=== PATIENT | female | born 1950 | race Caucasian/White ===

== ENCOUNTER 2022-07-02 07:13 | Emergency (ER) | payer OTHER, MEDICARE, SELFPAY ==
--- NOTE | ~2022-07-02 | XR_ITS ---
Right Hand Technique: PA, oblique, and lateral views were obtained. Clinical History: Pain Findings: No acute fracture or dislocation is seen. Osseous alignment is anatomic. There are mild to moderate degenerative changes throughout the interphalangeal joints of the hand, and at the first CMC joint.. Soft tissues are unremarkable. Impression: No fracture or dislocation seen. Degenerative changes throughout the hand, as detailed above. Reviewed, dictated and finalized at location . Impression: No fracture or dislocation seen. Degenerative changes throughout the hand, as detailed above.
[2022-07-02 07:20] VITALS: BP 197/79; PULSE 71; RESP 16; TEMP 36.4; O2SAT 100
--- NOTE | 2022-07-02 07:28 | ED.UPPEXIN ---
HPI - Extremity Injury (Upper) General Chief Complaint: Extremity Injury, Upper Stated Complaint: R hand pain Time Seen by Provider: 07/02/22 07:25 History of Present Illness HPI narrative: Pt presents today with right hand pain and swelling. Pt says her dog pulled her when trying to serenity something on leash and she fell and landed on right hand on concrete last night. Pt says she didn't think much of it last night but it is more swollen today and she thought she should get it checked out. Related Data Home Medications Medication Instructions Recorded Confirmed calcium carbonate 600 mg-vitamin 2 cap PO .qd 03/31/19 05/15/22 D3 12.5 mcg (500 unit) capsule (Calcium 600 with Vitamin D3) multivitamin with minerals-folic mg PO 03/31/19 05/15/22 acid 0.4 mg tablet (One Daily Womens 50 Plus) Allergies Allergy/AdvReac Type Severity Reaction Status Date / Time No Known Allergies Allergy Verified 07/02/22 07:27 Review of Systems Review of Systems: All systems reviewed & are unremarkable except as noted in HPI and below PMFSH Past Medical History Medical History Essential hypertension History of vaginal delivery Hyperlipidemia Hypothyroidism determined by thyroid function test Surgical History Surgical History History of cholecystectomy Family History Family History Mother Family history of lung cancer Father Family history of throat cancer Social History Social History Smoking status: Never smoker Second hand tobacco smoke exposure: No Alcohol intake: current Alcohol use details: 1 Drink per year. Substance use: never Substance use type: does not use Living arrangements: with family Occupation/Education: occupation Gender identity (if verbalized by the patient): Female Exam Const: General: healthy appearing Nutritional Appearance: well nourished Orientation/consciousness: patient oriented x3 Limitations: no limitations Skin: Wounds: wounds noted (superficial laceration to palm near fifth mcp joint ) Neuro: General: patient oriented x3, moves all extremities and no focal motor deficits Speech: normal speech Extrem: General: no clubbing, cyanosis or edema Other: mild swelling and tenderness right hand with small superficial laceration to palm at 5th mcp joint with some mild surrounding erythema Psych: Mental Status: mental status grossly normal Affect: normal affect Attitude: cooperative Course Vital Signs Vital signs: Vital Signs Temperature 97.6 F 07/02/22 07:20 Pulse Rate 71 07/02/22 07:20 Respiratory Rate 16 07/02/22 07:20 Blood Pressure 197/79 H 07/02/22 07:20 Pulse Oximetry 100 07/02/22 07:20 Temperature 97.6 F 07/02/22 07:20 Pulse Rate 71 07/02/22 07:20 Respiratory Rate 16 07/02/22 07:20 Blood Pressure 197/79 H 07/02/22 07:20 Pulse Oximetry 100 07/02/22 07:20 MDM - Extremity Injury (Upper) MDM Narrative Medical decision making narrative: no fx noted on x ray. will treat with antibioitics and ice elvate and otc nsaids Differential Diagnosis Differential diagnosis: Likely sprain and strain of wrist, fracture of hand and other (cellulitis of hand) Discharge Plan Discharge Clinical Impression: Contusion of hand, right, Cellulitis Patient Disposition: Home, Self-Care Condition: Stable Instructions: Antibiotic Form, Cellulitis (ED), Contusion in Adults (ED) Prescriptions: New amoxicillin-pot clavulanate 875-125 mg tablet 1 tablet PO Q12H Qty: 20 0RF No Action One Daily Womens 50 Plus 0.4 mg tablet PO calcium carbonate-vitamin D3 [Calcium 600 with Vitamin D3] 600 mg(1,500mg) -500 unit capsule 2 cap PO .qd levothyroxine 125 mcg tablet
[2022-07-02] MEDS: TETANUS,DIPHTHERIA,AC PERTUSSIS ADULT (0.5 ML) BOOSTRIX IM (07:40)
== END 2022-07-02 08:10 | disposition home or self-care (01) ==
PROVIDERS: Emergency Provider Emergency Medicine; PCP Physician Assistant
DX: S60.221A Contusion of right hand, initial encounter (principal); L03.113 Cellulitis of right upper limb; E78.5 Hyperlipidemia, unspecified; E03.9 Hypothyroidism, unspecified; I10 Essential (primary) hypertension; Z23 Encounter for immunization; W18.39XA Other fall on same level, initial encounter
CPT/HCPCS: 73130; 90715; 99283

== ENCOUNTER 2023-11-21 19:55 | Emergency (ER) | payer MEDICARE, SELFPAY ==
--- NOTE | ~2023-11-21 | XR_ITS ---
EXAM: XR hand RT min 3V DATE: 11/21/2023 20:30 HISTORY: dog bite, PUNCTURE WOUNDS TO 4TH AND 2ND METACARPAL . COMPARISON: 07/02/2022. FINDINGS: Decreased mineralization. Comminuted fracture of the proximal aspect of the third proximal phalange, with 20 degrees posterior angulation. No definite intra-articular extension. No lytic or bl astic lesion. Moderate scattered polyarticular osteoarthritis. No erosion or periosteal change. Subcu taneous gas in the thenar soft tissues and between the second/third and third/fourth digits at the le elizabeth of the proximal phalanges. IMPRESSION: Comminuted, angulated fracture of the proximal aspect of the third proximal phalange. Reviewed, dictated and finalized at location K.
[2023-11-21 19:56] VITALS: BP 149/93; PULSE 69; RESP 16; TEMP 36.3; O2SAT 97
[2023-11-21] MEDS: MORPHINE SULFATE (*CRX) 4 MG/ML INJ IV PUSH (20:46)
[2023-11-21] MEDS: AMPICILLIN SULB 3 GM/NS 100 ML 3 GM/100 ML VIAL IVPB (20:47)
[2023-11-21] MEDS: TETANUS,DIPHTHERIA,AC PERTUSSIS ADULT (0.5 ML) BOOSTRIX IM (20:47)
[2023-11-21] MEDS: NACL 0.9% IRRIGATION POUR BOTTLE 500 ML IRRIGATION (20:55)
[2023-11-21] MEDS: ONDANSETRON INJ 4 MG/2 ML VIAL IV PUSH (20:57)
--- NOTE | 2023-11-21 20:59 | ED.GENADULT ---
HPI - General Adult General Chief complaint: Animal Bite Stated complaint: Dog bite Time Seen by Provider: 11/21/23 20:08 History of Present Illness HPI narrative: Patient 73-year-old female who presents emergency department with chief complaint of dog bite to the right hand. Patient reports that she was playing tug-of-war with her dog and the dog grabbed a hold for hand and bit several times on her hand the patient reports she has defect between the 1st and 2nd digit and between the 3rd and 4th digit patient reports several large defects also reports multiple puncture wounds on the palmar aspect of her hand patient reports she is unsure of her last tetanus shot reports the dog is her pet and is observable. Patient reports he is not allergic to anything Related Data Home Medications Medication Instructions Recorded Confirmed calcium 600 mg (as 2 cap PO .qd 03/31/19 05/29/23 carbonate)-vitamin D3 12.5 mcg (500 unit) capsule (Calcium with Vit D3) multivitamin with minerals-folic mg PO 03/31/19 05/29/23 acid 0.4 mg tablet (One Daily Womens 50 Plus) Allergies Allergy/AdvReac Type Severity Reaction Status Date / Time No Known Allergies Allergy Verified 11/07/22 09:41 Review of Systems Review of Systems: A 10 system review of systems was completed on the patient and is negative except for what is stated in the HPI. Nursing and ancillary documentation was reviewed. [facility] Past Medical History Medical History Essential hypertension Hyperlipidemia Hypothyroidism determined by thyroid function test Surgical History Surgical History History of cholecystectomy Family History Family History Mother Family history of lung cancer Father Family history of throat cancer Social History Social History Smoking status: Never smoker Second hand tobacco smoke exposure: No Alcohol intake: current Alcohol use details: 1 Drink per year. Substance use: never Substance use type: does not use Lack of Transportation: No Lack of Food: Never True Current Housing: I Have Housing Concerned About Future Housing: No Difficulty Paying Gas/Electric Bills: No Difficulty Paying for Meds: No Currently Unemployed: No Education: High School Diploma/GED Living arrangements: with family Occupation/Education: occupation Gender identity (if verbalized by the patient): Female Exam Narrative: GENERAL: Well-appearing, well-nourished, and in no acute distress. HEAD: Normocephalic, atraumatic. EYES: PERRLA and EOMI. ENT: Nares clear, no rhinorrhea or epistaxis. Mucous membranes moist. NECK: Supple. CHEST: Clear to auscultation. No respiratory distress. HEART: Regular rate and rhythm. No murmur heard. Normal peripheral pulses. ABDOMEN: Soft, nontender, nondistended, normal active bowel sounds. EXTREMITIES: Normal range of motion intact sensory to the hand there are several large defects to the dorsum of the right hand with a approximately 5 cm laceration between the 1st and 2nd digit and a proximally 4 cm laceration between the 3rd and 4th digit there are multiple puncture wounds present on the palmar aspect of the right hand. No edema. SKIN: Warm, dry, no rash. NEURO: No focal deficits. Alert and oriented x3. PSYCH: Normal mood and affect. Course Vital Signs Vital signs: Vital Signs Temperature 36.3 C L 11/21/23 19:56 Pulse Rate 69 11/21/23 19:56 Respiratory Rate 16 11/21/23 19:56 Blood Pressure 149/93 H 11/21/23 19:56 Pulse Oximetry 97 11/21/23 19:56 Oxygen Delivery Room Air 11/21/23 19:56 Temperature 36.3 C L 11/21/23 19:56 Pulse Rate 69 11/21/23 19:56 Respiratory Rate 16 11/21/23 19:56 Blood Pressu
[2023-11-21 22:01] VITALS: BP 143/68; O2SAT 98
[2023-11-21 22:46] VITALS: BP 142/113; PULSE 61; RESP 17; O2SAT 97
--- NOTE | 2023-11-21 23:13 | PC.NURSE ---
called report to MARKELL Pedraza at [facility] ER. all questions answered.
--- NOTE | 2023-11-21 23:16 | PC.NURSE ---
Report received from MARKELL Rowan. Assumed care of patient at this time. Patient awaiting EMS to transport patient to [facility] ER.
--- NOTE | 2023-11-21 23:21 | PC.NURSE ---
care and report given to MARKELL Vázquez. all questions answered.
[2023-11-21 23:34] VITALS: BP 137/75; PULSE 61; RESP 17; O2SAT 97
--- NOTE | 2023-11-22 00:14 | PC.NURSE ---
Pt called out to state her pain is going back up. ERP notified, new orders received.
[2023-11-22] MEDS: MORPHINE SULFATE (*CRX) 4 MG/ML INJ IV PUSH (00:18)
[2023-11-22 00:32] VITALS: BP 107/79; PULSE 61; RESP 16; O2SAT 97
--- NOTE | 2023-11-22 00:43 | PC.NURSE ---
EMS here to transfer patient to [facility] ER.
== END 2023-11-22 00:44 | disposition short-term general hospital (02) ==
PROVIDERS: Emergency Provider Emergency Medicine; PCP Family Medicine
DX: S62.612A Displaced fracture of proximal phalanx of right middle finger, initial encounter for closed fracture (principal); S61.451A Open bite of right hand, initial encounter; W54.0XXA Bitten by dog, initial encounter; I10 Essential (primary) hypertension; E78.5 Hyperlipidemia, unspecified; E03.9 Hypothyroidism, unspecified; Z23 Encounter for immunization
CPT/HCPCS: 73130; 90471; 90715; 96365; 96375; 99285; J0295; J2270; J2405

== ENCOUNTER 2023-12-29 11:19 | Outpatient (CLI) | payer MEDICARE, SELFPAY ==
[2023-12-29 14:49] LABS: Alanine Aminotransferase 37 U/L (6-35); Albumin Level 4.5 g/dL (3.5-5.1); Alkaline Phosphatase 78 U/L (38-126); Anion Gap 7 mmol/L (4-12); Aspartate Amino Transferase 61 U/L (14-36); Bilirubin,Total 0.8 mg/dL (0.2-1.3); Blood Urea Nitrogen 14 mg/dL (7-17); Calcium 9.6 mg/dL (8.4-10.2); Carbon Dioxide 27 mmol/L (22-30); Chloride 105 mmol/L (98-107); Cholesterol 194 mg/dL (0-200); Estimated Glomerular Filt Rate > 60; Glucose 100 mg/dL (65-110); HDL Direct 45 mg/dL; Sodium 139 mmol/L (137-145); Triglycerides 178 mg/dL (<150)
[2023-12-29 14:59] LABS: LDL Cholesterol Direct 102 mg/dL
[2023-12-29 15:12] LABS: Basophils Absolute Auto 0.1 K/mm3 (0.0-0.1); Basophils Percent Auto 0.7 % (0.2-1.2); Eosinophils Absolute Auto 0.2 K/mm3 (0-0.3); Eosinophils Percent Auto 2.6 % (0-4.4); Hematocrit 44.2 % (37.0-47.0); Hemoglobin 13.6 g/dL (12.0-15.0); Immature Granulocyte Absolute 0.01 K/mm3 (0.00-0.031); Immature Granulocyte Percent A 0.1 % (0-0.5); Lymphocytes Absolute Auto 3.38 K/mm3 (0.9-3.2); Lymphocytes Percent Auto 47.1 % (18.3-44.2); Mean Corpuscular HGB Conc 30.8 g/dl (32-36); Mean Corpuscular Hemoglobin 28.8 pg (26-34); Mean Corpuscular Volume 93.6 fl (80-100); Mean Platelet Volume 11.2 fl (7.4-10.4); Monocytes Absolute Auto 0.6 K/mm3 (0.1-0.6); Monocytes Percent Auto 8.6 % (2.6-8.5); Neutrophils Absolute Auto 2.9 K/mm3 (1.3-6.7); Neutrophils Percent Auto 40.9 % (45.5-73.1); Platelet Count Result 247 k/mm3 (150-375); Red Blood Count 4.72 M/mm3 (4.2-5.4); Red Cell Distribution Width 13.6 % (11.5-14.5); White Blood Count 7.2 K/mm3 (4.5-10.0)
[2023-12-29 16:08] LABS: Hemoglobin A1C 6.3 % (<5.7)
[2023-12-29 18:19] LABS: Vitamin D 25 Hydroxy 64.3 ng/mL
== END 2023-12-29 11:20 | disposition home or self-care (01) ==
PROVIDERS: PCP Family Medicine; Visit Provider Family Medicine
DX: E78.2 Mixed hyperlipidemia (principal); R73.03 Prediabetes; E55.9 Vitamin D deficiency, unspecified; R53.83 Other fatigue; E03.9 Hypothyroidism, unspecified
CPT/HCPCS: 36415; 80053; 80061; 82306; 83036; 84443; 85025

== ENCOUNTER 2024-04-11 10:30 | Outpatient (RCR) | payer MEDICARE, SELFPAY ==
--- NOTE | 2024-01-19 11:51 | OTOPEVAL1 ---
Assessment and note entered by Kruanl Flores, MARYSE/Aleyda, CHT Evaluation Information Assessment Status Evaluation Diagnosis Closed displaced fracture of proximal phalanx of right middle finger Subjective Information Patient was bit by a dog on 11/21/23 where she sustained P1 fracture of the right middle finger. She is right handed. She reports no pain at rest, just feeling stiff. She has been wearing an immobilizer at night and when driving. She reports she is unable to bend the finger joints causing her to be unable to have a functional stump blower on any objects - jars, water bottle, steering wheel, etc. Reported Pain Level Pain Score 5: Self Report Assessment OT Clinical Summary Patient referred to OT following a dog bite to the right hand with dx of right middle finger P1 fracture. Non surgical. She presents with residual stiffness, weakness, and pain that is restricting her ability to make a composite fist to stump blower objects for ADLs. Skilled OT indicated to maximize functional ROM and strength of her right dominant hand for ADLs. Plan of Care Interventions Therapeutic Exercise,Manual Therapy,Therapeutic Activities,Hot Pack/Cold Pack,Ultrasound,Paraffin OT Services Indicated Yes Treatment Frequency and 2x/week for 8 visits Duration These treatments will address the objective and functional deficits as defined above. The patient will be advanced safely and appropriately in order for the patient to progress towards his/her prior level of function. Additional exercises will be introduced and as well as a comprehensive home exercise program upon discharge, if needed, ?to ensure carryover of functional gains achieved in the clinic. This treatment plan has been reviewed and agreement upon by the patient.
--- NOTE | 2024-01-19 11:51 | OPREHPOC ---
Outpatient Therapy Plan of Care This is a Multidisciplinary Plan of Care that may contain components documented by all disciplines (PT, OT, and ST.) OT Problem 1 OT Problem #1 Knowledge Deficit OT Goal 1 Goal / Goal Update Patient to be independent with instructed materials. Target Visit 8 OT Problem 2 OT Problem #2 Impaired Range of Motion OT Goal 1 Goal / Goal Update Patient to progress to being able to make a fist as measured by no gap between finger tips and her palm to increase functional dancing master on objects during ADLs. Target Visit 8 OT Problem 3 OT Problem #3 Impaired Strength OT Goal 1 Goal / Goal Update Patient to be able to progress to gripping yellow putty for dancing master strengthening x5 minutes to increase functional dancing master strength for ADLs. Target Visit 8
--- NOTE | 2024-02-15 09:58 | OTOPPROG ---
Assessment and note entered by Krunal Flores, MARYSE/Aleyda, CHT Evaluation Information Assessment Status Progress Diagnosis Closed displaced fracture of proximal phalanx of right middle finger Subjective Information Patient reports progress with therapy. She states she feels like her hand is limbering up . She is no longer wearing an immobilizer. She continues to report difficulties with making a fist. Functionally she reports difficulties with holding a pen, gripping her car's shifter, and holding a spatula handle. She reports she is back to holding the steering wheel and has progressed to being able to hold a bottle of water. ROM progress - Composite fist measurements (tip to palm gap): - index improved from 3 cm gap to 0 cm gap - middle improved from 8 cm gap to cm gap - ring improved from 8 cm gap to cm gap - small improved from 5 cm gap to 1.5 cm gap Assessment OT Clinical Summary Patient referred to OT following a dog bite to the right hand with dx of right middle finger P1 fracture. Non surgical. She is making slow, steady progress with improved ROM and strength which has carried over into improved functional psychiatric aide on objects during ADLs. Continued skilled OT indicated to maximize functional ROM and strength of her right dominant hand for ADLs. Plan of Care Interventions Therapeutic Exercise,Manual Therapy,Therapeutic Activities,Hot Pack/Cold Pack,Ultrasound,Paraffin OT Services Indicated Yes Treatment Frequency and 2x/week for 8 visits Duration These treatments will address the objective and functional deficits as defined above. The patient will be advanced safely and appropriately in order for the patient to progress towards his/her prior level of function. Additional exercises will be introduced and as well as a comprehensive home exercise program upon discharge, if needed, ?to ensure carryover of functional gains achieved in the clinic. This treatment plan has been reviewed and agreement upon by the patient.
--- NOTE | 2024-02-15 09:58 | OPREHPOC ---
Outpatient Therapy Plan of Care This is a Multidisciplinary Plan of Care that may contain components documented by all disciplines (PT, OT, and ST.) OT Problem 1 OT Problem #1 Knowledge Deficit OT Goal 1 Goal / Goal Update Patient to be independent with instructed materials. ---OT POC UPDATE 02/15/24--- Met, continue as HEP is progressed Target Visit 16 OT Problem 2 OT Problem #2 Impaired Range of Motion OT Goal 1 Goal / Goal Update Patient to progress to being able to make a fist as measured by no gap between finger tips and her palm to increase functional cooker soda on objects during ADLs. ---OT POC UPDATE 02/15/24--- Progressing, but not met, continue goal Target Visit 16 OT Problem 3 OT Problem #3 Impaired Strength OT Goal 1 Goal / Goal Update Patient to be able to progress to gripping yellow putty for cooker soda strengthening x5 minutes to increase functional cooker soda strength for ADLs. ---OT POC UPDATE 02/15/24--- Pt using lopez, continue to progress to yellow Target Visit 16 OT Goal 2 Goal / Goal Update ---OT POC UPDATE 02/15/24--- New strength goal: * Patient to increase right cooker soda strength for ADLs from 29 to 40 lbs. Target Visit 16
--- NOTE | 2024-03-15 09:10 | OTOPPROG ---
Assessment and note entered by Krunal Flores, OTR/Aleyda, CHT OT Progress Update 03/15/24 Diagnosis Closed displaced fracture of proximal phalanx of right middle finger ICD-10 Condition Codes (OT) Joint stiffness of right hand M25.641 Subjective Information Patient reports she is progressing functionally. She reports she is having an easier time opening jars, carrying grocery bags, and holding a pen. She reports she continues to be unable to hold and use a paring knife or use a nail clipper. She reports she continues to feel weak with pinching. Progress - Composite fist measurements (tip to palm gap): - index improved from 3 cm gap to 0 cm gap - middle improved from 6 cm gap to 5 cm gap - ring improved from 5 cm gap to 3 cm gap - small improved from 1.5 cm gap to 0 cm gap (R) medical sociologist strength improved from 29 to 38 lbs. (L) medical sociologist strength measures 70 lbs. Assessment OT Clinical Summary Patient referred to OT following a dog bite to the right hand with dx of right middle finger P1 fracture. Non surgical. She is making slow, steady progress with improved ROM and strength which has carried over into improved functional medical sociologist on objects during ADLs. Continued skilled OT indicated to maximize functional ROM and strength of her right dominant hand for ADLs. Plan of Care Interventions Therapeutic Exercise,Manual Therapy,Therapeutic Activities,Hot Pack/Cold Pack,Ultrasound,Paraffin OT Services Indicated Yes Treatment Frequency and 2x/week for 8 visits Duration These treatments will address the objective and functional deficits as defined above. The patient will be advanced safely and appropriately in order for the patient to progress towards his/her prior level of function. Additional exercises will be introduced and as well as a comprehensive home exercise program upon discharge, if needed, ?to ensure carryover of functional gains achieved in the clinic. This treatment plan has been reviewed and agreement upon by the patient.
--- NOTE | 2024-03-15 09:11 | OPREHPOC ---
Outpatient Therapy Plan of Care This is a Multidisciplinary Plan of Care that may contain components documented by all disciplines (PT, OT, and ST.) OT Problem 1 OT Problem #1 Knowledge Deficit OT Goal 1 Goal / Goal Update Patient to be independent with instructed materials. ---OT POC UPDATE 02/15/24--- Met, continue as HEP is progressed ---OT POC UPDATE 03/15/24--- Met, continue as HEP is progressed Target Visit 24 OT Problem 2 OT Problem #2 Impaired Range of Motion OT Goal 1 Goal / Goal Update Patient to progress to being able to make a fist as measured by no gap between finger tips and her palm to increase functional business control specialist on objects during ADLs. ---OT POC UPDATE 02/15/24--- Progressing, but not met, continue goal ---OT POC UPDATE 03/15/24--- Progressing, but not met, continue goal Target Visit 24 OT Problem 3 OT Problem #3 Impaired Strength OT Goal 1 Goal / Goal Update Patient to be able to progress to gripping yellow putty for business control specialist strengthening x5 minutes to increase functional business control specialist strength for ADLs. ---OT POC UPDATE 02/15/24--- Pt using lopez, continue to progress to yellow ---OT POC UPDATE 03/15/24--- Met Target Visit 16 OT Goal 2 Goal / Goal Update ---OT POC UPDATE 02/15/24--- New strength goal: * Patient to increase right business control specialist strength for ADLs from 29 to 40 lbs. ---OT POC UPDATE 03/15/24--- Progressed to 38, continue goal Target Visit 24
== END 2024-04-18 23:59 | disposition home or self-care (01) ==
LOC: ANHOT 10:30
PROVIDERS: PCP Family Medicine
DX: S62.612D Displaced fracture of proximal phalanx of right middle finger, subsequent encounter for fracture with routine healing (principal)
CPT/HCPCS: 97018; 97110; 97140; 97165; 97530

== ENCOUNTER 2024-04-15 09:27 | Outpatient (RCR) | payer MEDICARE, SELFPAY ==
--- NOTE | 2024-04-15 09:31 | OTOPDC ---
Assessment and note entered by Krunal Flores, OTR/L, CHT OT Discharge Summary 04/15/24 Diagnosis Closed displaced fracture of proximal phalanx of right middle finger ICD-10 Condition Codes (OT) Joint stiffness of right hand M25.641 Subjective Information Patient reports she is progressing functionally, having less pain, and more confident with using her hand. She is having an easier time with cutting vegetables and peeling potatoes. She feels like her hand is getting stronger. ROM progress - Composite fist measurements (tip to palm gap): - index is WNL at 0 cm gap - middle improved from 5 cm gap to 4 cm gap - ring remained at 3 cm gap - small is WNL at 0 cm gap Reported Pain Level Pain Score 0: Self Report Additional Pain Score Comments No pain at rest and no pain with ADLs. Reports feeling stiff. Pain with passive ROM particularly in the arthritic joints. Assessment OT Clinical Summary Patient referred to OT following a dog bite to the right hand with dx of right middle finger P1 fracture. Non surgical. Patient unfortunately is demonstrating a progress plateau with ROM and strength of her right hand. Progress limited due to underlying OA and HEP compliance. Reviewed all materials with patient and she is independent with her HEP. D/C OT with HEP. Plan of Care OT Services Indicated No
== END 2024-04-15 11:24 | disposition home or self-care (01) ==
LOC: ANHOT 09:27
PROVIDERS: PCP Family Medicine
DX: S62.612D Displaced fracture of proximal phalanx of right middle finger, subsequent encounter for fracture with routine healing (principal)
CPT/HCPCS: 97018; 97110

== ENCOUNTER 2024-07-05 10:42 | Outpatient (CLI) | payer MEDICARE, SELFPAY ==
--- OUTSIDE RECORDS SUMMARY | 2024-07-05 10:57 | XMS_ITS | Clinical Summary ---
Author Organization [facility] Address [address] [place] [address] Care Team Providers Care [employer] Protection Maintainer Name Role Phone Vicky Watkins MD Primary Care Provider [phone] Source Comments [facility],non-owned Affiliates and Associated Physician Practices is amultiple site organization consisting of ambulatory clinics and hospital sitesin [place], [place], [place] and [place]. This disclosure is being madepursuant to the Care Everywhere program and may not contain all information available regarding this patient. Last updated 17.[facility] Allergies No known active allergies Medications * Be aware that medications may not be up to date on this document. Alwaysverify current medications with the patient. HYDROcodone-acet aminophen (Jackson) 5-325 MG tabletIndication s:Dog bite of right hand, initial encounter Take 1 (one) tablet by mouth every 6 hours as needed for Pain 12 tablet 11/22/2023 Active Immunizations Immunization Administration Dates Next Due TDAP (7yrs+) 11/22/2023(Deferred: Discontinue d by physician) Social History Tobacco Use Types Packs/Day Years Used Date Smoking Tobacco: Never Smokeless Tobacco: Never Tobacco Cessation:Counseling Given: Not Answered PHQ-2 Answer Date Recorded Patient Health Questionnaire-2 Score 0 11/30/2023 Comments Unknown Sex and Gender Information Value Date Recorded Sex Assigned at Not on file Legal Sex Female 9:13 PM CDT Gender Identity Not on file Sexual Orientation Not on file Last Filed Vital Signs Vital Sign Reading Time Taken Comments Blood Pressure 128/71 11/22/2023 4:40 AM CDT Pulse 61 11/22/2023 4:40 AM CDT Temperature 37.1 C (98.7 F) 11/22/2023 1:26 AM CDT Respiratory Rate 16 11/22/2023 4:40 AM CDT Oxygen Saturation 96% 11/22/2023 4:40 AM CDT Inhaled Oxygen Concentration - - Weight 102.1 kg (225 lb) 11/22/2023 1:26 AM CDT Height 160 cm (5' 3 ) 11/22/2023 1:26 AM CDT Body Mass Index 39.86 11/22/2023 1:26 AM CDT Plan of Treatment Health Maintenance Due Date Last Done Comments BONE DENSITY TESTING 1950 COLOGUARD (AGES 45-75) - COL ON CA SCREENING 1949 COLON MONITORING 1949 COLONOSCOPY - COLON CA SCREENING 1949 CT COLONOGRAPHY - COLON CA SCREENING 1950 Colorectal Cancer Screening 1950 FIT - COLON CA SCREENING 1949 FLEX SIG - COLON CA SCREENING 1949 LIPID TESTING 1950 MAMMOGRAM 1949 HEPATITIS C SCREENING 08/09/1967 DTAP/TDAP/TD VACCINES (1 - Tdap) 1968 PNEUMOCOCCAL VACCINE 50+ (1 of 1 - PCV) 08/14/1999 ZOSTER VACCINE (1 of 2) 08/14/1999 COVID-19 VACCINE ( - 2023-2 5 season) 2023 DEPRESSION SCREENING 02/17/2024 MEDICARE AWV CALENDAR YEAR 2024 Respiratory Syncytial Virus (RSV) Vaccine Pt: or over 60 yrs (1 - 1-dose 75+ series) 2024 INFLUENZA VACCINE (Season Ended) 2024 HEPATITIS B VACCINE Aged Out No longe r eligible based on patient's age to complete this topic HIB VACCINE Aged Out No longer eligi ble based on patient's age to complete this topic HPV VACCINE Aged Out No longer eligi ble based on patient's age to complete this topic MENINGOCOCCAL (Group B) VACC INE SHARED DECISION-MAKING Aged Out No longer eligibl e based on patient's age to complete this topic MENINGOCOCCAL GROUPS A/C/Y/W VACCINE Aged Out No longer eligible b ased on patient's age to complete this topic Insurance [facility] MANAGED MEDICARE ADV MEDICARE Care Teams [employer] Protection Maintainer Relationship Specialty Start Date End Date Vicky Watkins MD [address] [place] [address] PCP - General Family Medicine 11/30/23
[2024-07-05 13:37] LABS: Alanine Aminotransferase 32 U/L (6-35); Albumin Level 4.6 g/dL (3.5-5.1); Alkaline Phosphatase 73 U/L (38-126); Anion Gap 8 mmol/L (4-12); Aspartate Amino Transferase 48 U/L (14-36); Bilirubin,Total 0.6 mg/dL (0.2-1.3); Blood Urea Nitrogen 17 mg/dL (7-17); Calcium 9.3 mg/dL (8.4-10.2); Carbon Dioxide 28 mmol/L (22-30); Chloride 104 mmol/L (98-107); Cholesterol 216 mg/dL (0-200); Estimated Glomerular Filt Rate > 60; Glucose 110 mg/dL (65-110); HDL Direct 58 mg/dL; Potassium 4.5 mmol/L (3.4-5.0); Sodium 140 mmol/L (137-145); Triglycerides 136 mg/dL (<150)
[2024-07-05 13:49] LABS: LDL Cholesterol Direct 108 mg/dL
[2024-07-05 13:53] LABS: Vitamin D 25 Hydroxy 50.8 ng/mL
[2024-07-05 14:07] LABS: Thyroid Stimulating Hormone Reflex 0.601 uIU/mL (0.465-4.68)
[2024-07-05 14:45] LABS: Hemoglobin A1C 6.3 % (<5.7)
== END 2024-07-05 10:43 | disposition home or self-care (01) ==
PROVIDERS: PCP Family Medicine; Visit Provider Family Medicine
DX: E78.2 Mixed hyperlipidemia (principal); E03.9 Hypothyroidism, unspecified; R73.03 Prediabetes; E55.9 Vitamin D deficiency, unspecified; I10 Essential (primary) hypertension
CPT/HCPCS: 36415; 80053; 80061; 82306; 83036; 84443

== ENCOUNTER 2025-01-18 10:38 | Outpatient (CLI) | payer MEDICARE, SELFPAY ==
--- OUTSIDE RECORDS SUMMARY | 2025-01-18 12:09 | XMS_ITS | Clinical Summary ---
Author Organization [facility] Address [address] [place] [address] Care Team Providers Care Perfect Binder Feeder Offbearer Name Role Phone Vicky Watkins MD Primary Care Provider Source Comments [facility],non-owned Affiliates and Associated Physician Practices is amultiple site organization consisting of ambulatory clinics and hospital sitesin [place] and [place]. This disclosure is being madepursuant to the Care Everywhere program and may not contain all information available regarding this patient. Last updated 17.[facility] [employer] Allergies No known active allergies Medications * Be aware that medications may not be up to date on this document. Alwaysverify current medications with the patient. HYDROcodone-acet aminophen ([place]) 5-325 MG tabletIndication s:Dog bite of right [...] 1:26 AM CDT Height 160 cm (5' 3) 11/22/2023 1:26 AM CDT Body Mass Index [...] 08/14/1999 ZOSTER VACCINE (1 of 2) 08/14/1999 DEPRESSION SCREENING 02/17/2024 MEDICARE AWV CALENDAR YEAR 2024 Respiratory Syncytial Virus (RSV) Vaccine Pt: or over 60 yrs (1 - 1-dose 75+ series) 2024 COVID-19 VACCINE ( - 2024-2 6 season) 2024 INFLUENZA VACCINE (#1) 2024 HEPATITIS B VACCINE Aged Out No [...] patient's age to complete this topic Insurance [facility] MANAGED MEDICARE ADV MEDICARE Care Teams Perfect Binder Feeder Offbearer Relationship Specialty Start Date End Date Vicky Watkins MD [address] [place] [address] PCP - General Family Medicine 11/30/23
[2025-01-18 18:47] LABS: Alanine Aminotransferase 42 U/L (6-35); Albumin Level 4.4 g/dL (3.5-5.1); Alkaline Phosphatase 89 U/L (38-126); Anion Gap 7 mmol/L (4-12); Aspartate Amino Transferase 41 U/L (14-36); Bilirubin,Total 0.4 mg/dL (0.2-1.3); Blood Urea Nitrogen 19 mg/dL (7-17); Calcium 9.9 mg/dL (8.4-10.2); Carbon Dioxide 24 mmol/L (22-30); Chloride 105 mmol/L (98-107); Cholesterol 193 mg/dL (0-200); Estimated Glomerular Filt Rate > 60; Glucose 123 mg/dL (65-110); HDL Direct 55 mg/dL; Potassium 4.5 mmol/L (3.4-5.0); Sodium 136 mmol/L (137-145); Total Protein 7.3 g/dL (6.3-8.2); Triglycerides 116 mg/dL (<150)
[2025-01-18 18:55] LABS: Hematocrit 41.7 % (37.0-47.0); Hemoglobin 13.6 g/dL (12.0-15.0); Immature Granulocyte Percent A 0.2 % (0-0.5); Lymphocytes Absolute Auto 4.41 K/mm3 (0.9-3.2); Mean Corpuscular HGB Conc 32.6 g/dl (32-36); Mean Corpuscular Hemoglobin 28.6 pg (26-34); Mean Corpuscular Volume 87.6 fl (80-100); Nucleated Red Blood Cells Absolute Auto 0.000 K/mm3 (0.0-0.012); Nucleated Red Blood Cells Perc 0.0 % (0.0-0.2); Platelet Count Result 279 k/mm3 (150-375); Red Blood Count 4.76 M/mm3 (4.2-5.4); White Blood Count 9.1 K/mm3 (4.5-10.0)
[2025-01-18 19:17] LABS: Thyroid Stimulating Hormone Reflex 0.356 uIU/mL (0.465-4.68)
[2025-01-18 19:47] LABS: Free T4 Free Thyroxine Reflex 1.27 ng/dL (0.78-2.19); Hemoglobin A1C 6.5 % (<5.7)
[2025-01-18 20:31] LABS: Total Triiodothyronine (T3) 0.99 NG/ML (0.82-1.58)
== END 2025-01-18 10:39 | disposition home or self-care (01) ==
LOC: ANHGOSHLAB 10:38
DX: E78.2 Mixed hyperlipidemia (principal); E03.9 Hypothyroidism, unspecified; R53.83 Other fatigue; R73.03 Prediabetes
CPT/HCPCS: 36415; 80053; 80061; 83036; 84439; 84443; 84480; 85025